=== PATIENT | male | born 1935 | race Caucasian/White ===

== ENCOUNTER 2017-10-26 09:27 | Day surgery (SDC) | payer MEDICARE, OTHER ==
[~2017-10-26 09:27] MED LIST: ACETAMINOPHEN 1,000 MG/100 ML BTL IV ONE; CEFAZOLIN 2 Gram 2 GM/50 ML BAG IVPB ONE
[2017-10-26] MEDS ORDERED: PROPOFOL 10 MG/ML VIAL IV ONE (09:28)
[2017-10-26] MEDS ORDERED: MORPHINE SULFATE 5 MG/ML PFS IVP ONE (09:28)
[2017-10-26] MEDS ORDERED: TRANEXAMIC ACID 1,000 MG/10 ML ML IV ONE (09:28)
[2017-10-26] MEDS ORDERED: KETOROLAC 30 MG/ML VIAL IVP ONE (09:28)
[2017-10-26] MEDS ORDERED: 0.9 % SODIUM CHLORIDE 10 ML VIAL IVP ONE (09:28)
[2017-10-26] MEDS ORDERED: SEVOFLURANE 250 ML INH ONE (09:28)
[2017-10-26] MEDS ORDERED: METHYLPREDNISOLONE 40MG/VIAL IM ONE (09:28)
[2017-10-26] MEDS ORDERED: FENTANYL PF 100MCG/2ML VIAL IV ONE (09:28)
[2017-10-26] MEDS ORDERED: LIDOCAINE 2% MDV (20MG/ML) 20ML VIAL IV ONE (09:28)
[2017-10-26 09:44] LABS: BASO % 0.7 % (0-6); EOS % 1.7 % (0-6); GRAN % 65.8 % (47-80); HEMATOCRIT 44.3 % (42.0-52.0); HEMOGLOBIN 15.8 gm/dl (14.0-18.0); LYMPH % 23.3 % (16-45); MEAN CELL VOLUME 81.7 fl (81-97); MEAN CORPUSCULAR HEMOGLOBIN 29.2 pg (27-33); MEAN CORPUSCULAR HGB CONC 35.7 g/dl (32-36); MEAN PLATELET VOLUME 9.5 fl (7.4-10.4); MONO % 8.5 % (0-9); PLATELET COUNT 249 K/uL (130-400); RED BLOOD COUNT 5.42 M/uL (4.40-5.70); RED CELL DISTRIBUTION WIDTH 12.9 % (11.5-14.5); WHITE BLOOD COUNT W/O DIFF 9.2 K/uL (4.2-12.2)
[2017-10-26 09:58] LABS: CREATININE 1.4 mg/dL (0.7-1.2)
--- NOTE | 2017-10-26 15:45 | Operative Note ---
DATE OF SURGERY: 10/26/17 PREOPERATIVE DIAGNOSIS: INTERNAL DERANGEMENT, RIGHT KNEE. POSTOPERATIVE DIAGNOSES: 1. DIFFUSE SYNOVITIS. 2. GRADE 3 CHONDROMALACIA PATELLA. 3. COMPLEX DEGENERATIVE SPLIT TEAR INVOLVING THE POSTERIOR HORN OF THE MEDIAL MENISCUS. 4. GRADE 3 CHONDROMALACIA MEDIAL FEMORAL CONDYLE 45 TO 90 DEGREES. 5. COMPLEX TEAR INVOLVING THE LATERAL AND ANTERIOR HORN OF THE LATERAL MENISCUS. PROCEDURE: 1. RIGHT KNEE ARTHROSCOPY WITH PARTIAL MEDIAL AND LATERAL MENISCECTOMY 2. RIGHT KNEE ARTHROSCOPY WITH SYNOVECTOMY. 3. RIGHT KNEE ARTHROSCOPY WITH DEBRIDEMENT OF THE MEDIAL PATELLOFEMORAL COMPARTMENTS WITH CHONDROPLASTY. STAFF SURGEON: PAVEL KRUSE M.D. ANESTHESIA: GENERAL. PREPARATION: CHLORAPREP. INDIVIDUAL CONSIDERATIONS: NONE. PROCEDURE: The patient was taken to the Operating Room and placed supine on the operating table. He had a successful induction of a general anesthetic. His right lower extremity was prepped and draped in the usual fashion. The patient had superolateral inflow cannula placed. The skin was infiltrated with 0.5% Marcaine with Epinephrine prior. A stab wound was made, clear effusion was drained, and the knee was inflated with normal saline. An inferior medial and inferior lateral portal was made in a similar fashion. The arthroscope was introduced through the inferior lateral portal up to the pouch. He had diffuse synovitis in the pouch at both gutters, floating debris also. A synovectomy was performed in these areas. He had grade 3 change primarily inferior lateral portion of the patella, which was smoothed with a shaver. The notch looked good. Moderate fat pad impingement was debrided medially and a chondral lesion with peeling cartilage of the medial femoral condyle from 45 to 90, about the size of a quarter. He had basically a split tear involving the posterior horn of the medial meniscus and this was debrided back to stable with basket forceps and a shaver and the unstable cartilage was smoothed with a shaver. In the notch, the cruciates are normal. He had a large flap tear involving the anterior horn of the lateral meniscus and a smaller fringe tear of the lateral one and these were all debrided back with a shaver but the articular cartilage laterally looked good. The knee was irrigated out with saline to remove loose floating debris. Portals were closed with bayron and 20 mL of 0.25% plain Marcaine along with 5 mg of Morphine and 40 mg DepoMedrol were injected into the knee through a sterile #18-gauge needle and a sterile Bulkee compressive dressing was applied. The patient tolerated the procedure well. Needle and sponge counts were correct. Estimated blood loss was minimal. He was taken back to Recovery in good condition. There were no complications. JOB NUMBER: [id number] MTDD
== END 2017-10-26 13:05 | disposition home or self-care (01) ==
LOC: SUR 09:27
PROVIDERS: ATTEND Orthopaedic Surgery
DX: M23.221 Derangement of posterior horn of medial meniscus due to old tear or injury, right knee (principal); M23.241 Derangement of anterior horn of lateral meniscus due to old tear or injury, right knee; M22.41 Chondromalacia patellae, right knee; M65.861 Other synovitis and tenosynovitis, right lower leg; I10 Essential (primary) hypertension; E78.00 Pure hypercholesterolemia, unspecified
CPT/HCPCS: 29880; 29876; 01400; 85025; 80048; J1885; J3010; J0690; J2270; J3490; J1030